=== PATIENT | male | born 1990 | race Caucasian/White ===

== ENCOUNTER 2018-09-25 10:56 | Emergency (ER) | payer OTHER ==
[2018-09-25 11:01] VITALS: RESP 18
[2018-09-25] MEDS ORDERED: LIDOCAINE 1% INJ 10MG/ML (20 ML MDV) SQ ONE (11:20)
--- NOTE | 2018-09-25 11:26 | ED ---
Head Injury HPI - General Chief complaint: Head Injury Stated complaint: Fall Time Seen by Provider: 09/25/18 11:02 Source: patient, EMS, RN notes reviewed, old records reviewed Mode of arrival: EMS - History of Present Illness Initial comments: Patient is an 8-year-old male presents [place] department today for evaluation with complaints of vomiting and head injury. [place], [place] in his head. He had an episode of vomiting. Patient has a laceration over the back of scalp. His vaccines are believed to be up-to-date. Patient states he was getting out of bus to go back to [place] to patient's snf. Patient denies any loss of consciousness. - Related Data Home Medications Medication Instructions Recorded Confirmed Amantadine HCl [Amantadine] 100 mg PO BID 09/25/18 09/25/18 Divalproex [Depakote] 500 mg PO BID 09/25/18 09/25/18 Docusate [Colace] 100 mg PO DAILY 09/25/18 09/25/18 Sertraline [Zoloft] 100 mg PO DAILY 09/25/18 09/25/18 cloZAPine [Clozaril] 500 mg PO HS 09/25/18 09/25/18 Allergies/Adverse reactions: Allergies Allergy/AdvReac Type Severity Reaction Status Date / Time Sulfa (Sulfonamide Allergy Unknown Verified 09/25/18 11:18 Antibiotics) Childhood Review of Systems ROS Statement: Those systems with pertinent positive or pertinent negative responses have been documented in the HPI. ROS Other: All systems not noted in ROS Statement are negative. Past Medical History Past Medical History: No Reported History History of Any Multi-Drug Resistant Organisms: None Reported Past Surgical History: No Surgical Hx Reported Past Psychological History: Bipolar Smoking Status: Current every day smoker Past Alcohol Use History: None Reported Past Drug Use History: Marijuana General Exam - General Exam Comments Initial Comments: This is a 28-year-old male. Alert and oriented 3. No significant distress. General appearance: alert, in no apparent distress Head exam: Present: atraumatic, normocephalic, normal inspection Eye exam: Present: normal appearance, PERRL, EOMI, other (Nicolas has a 2 inch laceration over the posterior scalp.). Absent: scleral icterus, conjunctival injection, periorbital swelling ENT exam: Present: normal exam, mucous membranes moist Neck exam: Present: normal inspection. Absent: tenderness, meningismus, lymphadenopathy Respiratory exam: Present: normal lung sounds bilaterally. Absent: respiratory distress, wheezes, rales, rhonchi, stridor Cardiovascular Exam: Present: regular rate, normal rhythm, normal heart sounds. Absent: systolic murmur, diastolic murmur, rubs, gallop, clicks GI/Abdominal exam: Present: soft, normal bowel sounds. Absent: distended, tenderness, guarding, rebound, rigid Extremities exam: Present: normal inspection, full ROM, normal capillary refill. Absent: tenderness, pedal edema, joint swelling, calf tenderness Back exam: Present: normal inspection Neurological exam: Present: alert, oriented X3, CN II-XII intact Psychiatric exam: Present: normal affect, normal mood Course Vital Signs 09/25/18 10:57 Temperature 97.9 F Pulse Rate 65 Respiratory 18 Rate Blood Pressure 119/75 O2 Sat by Pulse 97 Oximetry Procedures - Laceration Laceration #1 Size (cm): 3 Description: linear Depth: simple, single layer Anesthetic Used: lidocaine 1% Anesthesia Technique: local infiltration Amount (mls): 5 Pre-repair: wound explored, irrigated extensively Type of Sutures: other (Irwin) Number of Sutures: 4 Patient Tolerated Procedure: well, no complications Medical Decision Making - Medical Decision Making This is a 28-year-old male presents today with a head injury. He had some vomiting episodes and has a tooth and she'll laceration of the scalp. CT of the brain was reviewed negative for any acute process. Is no neck tenderness. Patient's wound was thoroughly irrigated and closed with 4 irwin. Discussed monitoring for infection. All questions were answered and return parameters were discussed. - Radiology Data Radiology results: report reviewed CT is negative for any acute intracranial hemorrhage mass effect or midline shift. Disposition Clinical Impression: Head injury, Scalp laceration Disposition: HOME SELF-CARE Condition: Good Instructions (If sedation given, give patient instructions): Concussion (ED) Additional Instructions: Please return to the emergency room in 8-10 days to have irwin removed. Please leave wound covered for the first 24-48 hours and then leave open to air after that time. Please use clean soap and water to clean the suture area to prevent scabbing over the top of your irwin.. Please watch for any signs of infection which may include but not limited to increased pain, swelling, redness, fever or chills. Please return to the emergency room if any signs of infection do occur. Please return to the emergency room for any other concerns or complications. Is patient prescribed a controlled substance at d/c from ED?: No Referrals: Nonstaff,Physician [Primary Care Provider] - 1-2 days Time of Disposition: 12:13
--- NOTE | 2018-09-25 11:55 | CT ---
EXAMINATION TYPE: CT brain wo con DATE OF EXAM: 09/25/2018 COMPARISON: None HISTORY: Fall with posterior head injury. Nausea and vomiting. CT DLP: 1131.4 mGycm. Automated Exposure Control for Dose Reduction was Utilized. TECHNIQUE: CT scan of the head is performed without contrast. FINDINGS: There is no acute intracranial hemorrhage, mass effect, or midline shift identified. The ventricles and sulci are within normal limits in size. The globes are intact and the visualized sin uses are markable for minimal inflammatory change in the right maxillary sinus, ethmoid air cells. Po sterior parietal cephalohematoma is noted. IMPRESSION: No acute intracranial hemorrhage, mass effect, or midline shift is seen.
[2018-09-25 13:11] VITALS: BP 117/85; PULSE 61; TEMP 98
== END 2018-09-25 13:09 | disposition home or self-care (01) ==
LOC: EC 10:56
DX: S01.01XA Laceration without foreign body of scalp, initial encounter (principal); F31.9 Bipolar disorder, unspecified; F17.200 Nicotine dependence, unspecified, uncomplicated; Z79.899 Other long term (current) drug therapy; Z88.2 Allergy status to sulfonamides; W18.09XA Striking against other object with subsequent fall, initial encounter; Y92.521 Bus station as the place of occurrence of the external cause
CPT/HCPCS: 70450; 99284; 12002; J2001